=== PATIENT | female | born 1970 | race Two or more races ===

== ENCOUNTER 2023-05-22 12:45 | Emergency (ER) | payer OTHER ==
[~2023-05-22] VITALS: Ht 160 cm; Wt 77.1 kg
== END 2023-05-22 19:14 | disposition home or self-care (01) ==
LOC: ER 12:45
DX: M79.645 Pain in left finger(s) (principal); M79.89 Other specified soft tissue disorders

== ENCOUNTER 2023-05-25 10:36 | Emergency (ER) | payer OTHER ==
[~2023-05-25] VITALS: Ht 160 cm; Wt 77.1 kg
[2023-05-25] MEDS ORDERED: AMOX-CLAV 875-1 EACH PO (11:22)
== END 2023-05-25 12:31 | disposition home or self-care (01) ==
LOC: ER 10:36
DX: L03.012 Cellulitis of left finger (principal)